=== PATIENT | male | born 2000 ===

== ENCOUNTER 2024-03-22 20:22 | Emergency (ER) | payer SELFPAY ==
[2024-03-22 20:48] LABS: APPEARANCE,URINE CLEAR (CLEAR); BILIRUBIN,URINE NEGATIVE (NEGATIVE); COLOR,URINE DARK YELLOW (YELLOW); GLUCOSE,URINE NEGATIVE (NEGATIVE); KETONES,URINE NEGATIVE (NEGATIVE); LEUKOCYTE ESTERASE,URINE NEGATIVE (NEGATIVE); NITRITE,URINE NEGATIVE (NEGATIVE); OCCULT BLOOD,URINE NEGATIVE (NEGATIVE); PROTEIN,URINE NEGATIVE (NEGATIVE)
== END 2024-03-22 21:13 | disposition home or self-care (01) ==
LOC: DL.ED 20:22
DX: R30.0 Dysuria (principal); Z86.16 Personal history of COVID-19
CPT/HCPCS: 81003; 87491; 87563; 87591; 99283